=== PATIENT | female | born 1965 | race Caucasian/White ===

== ENCOUNTER → 2017-12-22 | Outpatient (CLI) | payer OTHER ==
[~2017-12-22] MED LIST: ALBU90OI61 INH; ATOR40TA PO; ATOR80; BENZ100A; BUME1 PO; CEPH500 PO; CHLO25B PO; Estradiol0.5 MG PO; FURO20; FURO20 PO; GABA300 PO; GEMF600 PO; HYDCHL25 PO; HYDR1TAB94 PO; Hydrocodone-Ap1 EA23 PO; Keflex500 MG PO; LEVSOD100 PO; LEVSOD125; LISI20; LISI20 PO; LOVA40; MELO7.5 PO; METPRE4DP PO; Micro-K10 MEQ; Naprosyn500 MG PO; Norco 5-325 Ta1 EACH PO; OMEP20ER PO; POTCHL10ER; Percocet 5-3251 EACH PO; Prednisone20 MG PO; Pyridium200 MG PO; Robaxin500 MG PO; SERT100 PO; TRAM50 PO; Ultram50 MG PO; Valium5 MG PO
[2017-12-24 15:08] LABS: HPV 16 Negative (Negative); HPV 18 Negative (Negative); HPV OTHER HR TYPES Negative (Negative)
== END | disposition home or self-care (01) ==
LOC: LAB 17:24 → LAB SHORT 17:24
PROVIDERS: Nurse Practitioner Women's Health
DX: Z12.72 Encounter for screening for malignant neoplasm of vagina (principal); Z91.89 Other specified personal risk factors, not elsewhere classified
CPT/HCPCS: 87624; G0123